=== PATIENT | female | born 1945 | race Caucasian/White ===

== ENCOUNTER 2020-06-07 06:27 | Day surgery (SDC) | payer MEDICARE, BC ==
[2020-06-07] MEDS ORDERED: Dextrose 5%-Lactated Ringers 1,000 ML IV SCH (07:00)
[2020-06-07] MEDS ORDERED: fentaNYL 100 MCG/2 ML SDV ONE (07:10)
[2020-06-07] MEDS ORDERED: Propofol 200 MG/20 ML SDV ONE ×2 (07:10→09:45)
[2020-06-07] MEDS ORDERED: Midazolam 1 MG/ML 2 ML SDV ONE (07:10)
[2020-06-07] MEDS ORDERED: Pantoprazole 40 MG Vial IVPUSH ONE (09:43)
[2020-06-07 10:52] VITALS: PULSE 96
[2020-06-07 11:09] VITALS: BP 145/68
--- NOTE | 2020-06-19 11:07 | OR ---
DATE OF PROCEDURE: 06/07/2020 SURGEON: Amol Martinez MD PREOPERATIVE DIAGNOSIS: History of black stools. POSTOPERATIVE DIAGNOSES: 1. History of black stools. 2. Upper endoscopy showing: a. Large esophageal varices and lesser gastric cardiac varices. b. Erosive partial gastritis (probable likely source of recent upper gastrointestinal bleeding). 3. Colonoscopy with 2 polyps involving ascending colon and splenic flexure of colon. OPERATIVE PROCEDURE: 1. Esophagogastroduodenoscopy with antral biopsies for CLOtest. 2. Flexible colonoscopy with polypectomy x2. ANESTHESIA: IV sedation. INDICATIONS FOR PROCEDURE: This is a 74-year-old female presenting with some recent black stools. Plan is to proceed with upper and lower endoscopy with biopsies or polypectomy as indicated. Potential risks including bleeding and perforation were discussed, and the patient wishes to proceed. DETAILS OF PROCEDURE: The patient was taken to the operating room and placed in a left lateral decubitus position. IV sedation was administered after which the upper GI endoscope was passed orally through the length of esophagus, into the stomach with retroflexion view of the fundus, and thereafter through the pyloric channel to the junction of the third and fourth portions of the duodenum. The striking finding on the esophagus was fairly large esophageal varices in the distal esophagus. These were associated with some lesser sized varices in the gastric cardia. There was no major inflammation over the surface of these varices, and these would likely have not been associated with recent bleeding but the esophagus would be at high risk for major bleeding in the upcoming months and years. of the stomach, there was some erosive gastritis. There was some coffee-ground type of material present within the antrum where the erosions were occurring. No active bleeding was seen, but this certainly would be a likely source of the patient's black stools. The pyloric channel and visualized portions of the duodenum were unremarkable. At this point, biopsies were obtained from the antrum and sent for CLOtest for H pylori. Minimal bleeding from the biopsy site was seen, and the procedure was then concluded. Attention was then taken to the colonoscopy. Initial digital rectal exam was performed and was unremarkable. Colonoscope was passed into the rectum with retroflexion revealing some distended hemorrhoids. There were associated with this also some quite dilated rectal veins extending up from hemorrhoidal columns. This was consistent with portal hypertension as well. Scope was eventually passed into the cecum. The patient was noted to have 2 small polyps, 1 in the ascending colon and 1 in the splenic flexure. Both of these were excised by means of cautery snare technique. Good hemostasis was noted at the polypectomy sites, and the specimens were sent for histologic evaluation. The prep overall was quite good. Only small liquid stool was present. No blood or bleeding was seen within the colon. The scope was then withdrawn and the above findings reconfirmed, and the procedure was then concluded. Plan would be to begin the patient on some Protonix 40 mg a day, and the patient will be set up to see GWYN Mario, in 10 to 14 days regarding the overall situation. Consideration for Gastroenterology referral regarding the esophageal varices would be warranted. Otherwise, the next colonoscopy should be undertaken in 3 years. Amol Martinez MD /[id number]
== END 2020-06-07 11:30 | disposition home or self-care (01) ==
LOC: JP.SDS 06:27
PROVIDERS: ATTEND Surgery
DX: D12.2 Benign neoplasm of ascending colon (principal); D12.3 Benign neoplasm of transverse colon; K29.70 Gastritis, unspecified, without bleeding; K25.9 Gastric ulcer, unspecified as acute or chronic, without hemorrhage or perforation; I85.00 Esophageal varices without bleeding; K64.9 Unspecified hemorrhoids; I10 Essential (primary) hypertension; E11.9 Type 2 diabetes mellitus without complications; Z88.5 Allergy status to narcotic agent; Z01.812 Encounter for preprocedural laboratory examination; Z20.822 Contact with and (suspected) exposure to COVID-19
CPT/HCPCS: 43239; 45385; 87081; 88305; C9113; J2250; J2704; J3010; J7121; U0002

== ENCOUNTER 2021-06-29 08:32 | Day surgery (SDC) | payer MEDICARE, BC ==
[2021-06-29] MEDS ORDERED: Dextrose 5%-Lactated Ringers 1,000 ML IV SCH (09:45)
[2021-06-29] MEDS ORDERED: fentaNYL 100 MCG/2 ML SDV ONE (10:08)
[2021-06-29] MEDS ORDERED: Propofol 200 MG/20 ML SDV ONE (10:08)
[2021-06-29] MEDS ORDERED: Midazolam 1 MG/ML 2 ML SDV ONE (10:08)
[2021-06-29] MEDS ORDERED: ceFAZolin 1 GM in Premix Bag 1 BAG IV ONE (10:30)
[2021-06-29] MEDS: Lidocaine 1% with EPINEPHrine 1:100,000 50 ML MDV ONE ×2 (11:30→11:37)
[2021-06-29] MEDS: Bupivacaine 0.5% 50 ML MDV ONE ×2 (11:30→11:38)
[2021-06-29] MEDS ORDERED: Ketorolac 30 MG/ML SDV IM ONE (12:30)
[2021-06-29 13:07] VITALS: BP 155/78; PULSE 71
== END 2021-06-29 13:08 | disposition home or self-care (01) ==
LOC: JP.SDS 08:32
PROVIDERS: ATTEND Surgery
DX: D03.61 Melanoma in situ of right upper limb, including shoulder (principal); I10 Essential (primary) hypertension; K21.9 Gastro-esophageal reflux disease without esophagitis; E11.9 Type 2 diabetes mellitus without complications
CPT/HCPCS: 11606; 12034; J0690; J1885; J2250; J2704; J3010; J3490; J7121; 88305; 88342

== ENCOUNTER 2021-10-16 10:22 | Day surgery (SDC) | payer MEDICARE, BC ==
[~2021-10-16 10:22] MED LIST: Midazolam 1 MG/ML 2 ML SDV ONE; Propofol 200 MG/20 ML SDV ONE; fentaNYL 100 MCG/2 ML SDV ONE
[2021-10-16] MEDS ORDERED: Propranolol 40 MG Tab PO ONE (10:52)
[2021-10-16] MEDS ORDERED: ceFAZolin 2 GM in Sodium Chloride 0.9% 100 ML IV ONE (11:00)
[2021-10-16] MEDS ORDERED: Dextrose 5%-Lactated Ringers 1,000 ML IV SCH (11:00)
[2021-10-16] MEDS ORDERED: Lidocaine 1% with EPINEPHrine 1:100,000 50 ML MDV ONE (14:03)
[2021-10-16] MEDS ORDERED: Bupivacaine 0.5% 50 ML MDV ONE (14:03)
[2021-10-16] MEDS ORDERED: Bacitracin Oint 1 GM U/D Packet TOP ONE (14:20)
[2021-10-16] MEDS ORDERED: Bacitracin Oint 1 GM U/D Packet ONE (14:27)
[2021-10-16 15:21] VITALS: BP 162/80; PULSE 79
== END 2021-10-16 15:46 | disposition home or self-care (01) ==
LOC: JP.SDS 10:22
PROVIDERS: ATTEND Surgery
DX: L82.0 Inflamed seborrheic keratosis (principal); I12.9 Hypertensive chronic kidney disease with stage 1 through stage 4 chronic kidney disease, or unspecified chronic kidney disease; E11.22 Type 2 diabetes mellitus with diabetic chronic kidney disease; E66.9 Obesity, unspecified; N18.30 Chronic kidney disease, stage 3 unspecified; Z68.30 Body mass index [BMI] 30.0-30.9, adult
CPT/HCPCS: A9270-GY; J0690; J2250; J2704; J3010; J3490; J7121

== ENCOUNTER 2024-07-02 07:18 | Day surgery (SDC) | payer MEDICARE, BC ==
[2024-07-02] MEDS ORDERED: Propofol 200 MG/20 ML SDV ONE (07:39)
[2024-07-02] MEDS ORDERED: Succinylcholine 200 MG/10 ML MDV ONE (07:39)
[2024-07-02] MEDS ORDERED: Rocuronium 50 MG/5 ML Vial ONE (07:39)
[2024-07-02] MEDS ORDERED: Dexamethasone 4 MG/ML SDV ONE (07:39)
[2024-07-02] MEDS ORDERED: Glycopyrrolate 0.2 MG/ML 5 ML MDV ONE (07:39)
[2024-07-02] MEDS ORDERED: Ondansetron 4 MG/2 ML SDV ONE (07:39)
[2024-07-02] MEDS ORDERED: Neostigmine Methylsulfate 10 MG/10 ML MDV ONE (07:39)
[2024-07-02] MEDS ORDERED: fentaNYL 250 MCG/5 ML SDV ONE ×2 (07:41→11:14)
[2024-07-02 07:58] LABS: HEMATOCRIT 39.7 % (34.3-46.0); HEMOGLOBIN 13.3 g/dL (11.2-15.5); MEAN CORPUSCULAR HEMOGLOBIN 28.9 pg (31.6-35.5); MEAN CORPUSCULAR HGB CONC 33.5 g/dL (31.6-35.5); MEAN CORPUSCULAR VOLUME 86.3 fL (81.4-99.0); RED BLOOD CELL COUNT 4.6 M/uL (3.77-5.24)
[2024-07-02] MEDS: Lactated Ringers 1,000 ML IV SCH (08:00)
[2024-07-02 08:20] LABS: A/G RATIO 0.9 (1.2-2.2); ALANINE AMINOTRANSFERASE,ALT 35 U/L (12-78); ALBUMIN 3.7 g/dL (3.4-5.0); ALKALINE PHOSPHATASE 154 U/L (46-116); ASPARTATE AMNIOTRANSFERASE,AST 31 U/L (15-37); BILIRUBIN TOTAL 0.6 mg/dL (0.2-1.0); BLOOD UREA NITROGEN,BUN 22 mg/dL (7-18); CALCIUM 9.3 mg/dL (8.5-10.1); CARBON DIOXIDE,CO2 24 mmol/L (21-32); CHLORIDE,CL 104 mmol/L (100-108); CREATININE 1.1 mg/dL (0.6-1.0); EST CRCL DRUG DOSING (CG) 37.93 mL/min; ESTIMATED GFR 51 mL/min (>60); GLUCOSE RANDOM 247 mg/dL (74-106); POTASSIUM,K 4.5 mmol/L (3.6-5.2); PROTEIN TOTAL,TP 7.8 g/dL (6.4-8.2); SODIUM,NA 140 mmol/L (140-148)
[2024-07-02] MEDS: ceFAZolin 2 GM in Premix Bag 1 BAG IV ONE (11:21)
[2024-07-02] MEDS: Isosulfan Blue 5 ML SDV ONE (12:00)
[2024-07-02] MEDS ORDERED: Lactated Ringers 1,000 ML ONE (12:35)
[2024-07-02] MEDS: Bupivacaine 0.5% 50 ML MDV ONE (13:20)
[2024-07-02] MEDS: Lidocaine 1% with EPINEPHrine 1:100,000 50 ML MDV ONE (13:20)
[2024-07-02] MEDS ORDERED: Naloxone 0.4 MG/ML SDV ONE (13:38)
[2024-07-02 16:41] VITALS: BP 156/74; PULSE 77
== END 2024-07-02 16:30 | disposition home or self-care (01) ==
LOC: JP.SDS 07:18
PROVIDERS: ATTEND Surgery
DX: C50.911 Malignant neoplasm of unspecified site of right female breast (principal); C50.912 Malignant neoplasm of unspecified site of left female breast; I10 Essential (primary) hypertension; E11.9 Type 2 diabetes mellitus without complications; E78.00 Pure hypercholesterolemia, unspecified; Z87.891 Personal history of nicotine dependence; Z79.85 Long-term (current) use of injectable non-insulin antidiabetic drugs; Z79.4 Long term (current) use of insulin; Z79.84 Long term (current) use of oral hypoglycemic drugs; Z79.899 Other long term (current) drug therapy; Z88.5 Allergy status to narcotic agent
CPT/HCPCS: 00400; 19120; 36415; 38525; 38900; 76098; 78195; 80053; 85027; 86850; 86900; 86901; A9541; J0330; J0665; J0690; J1100; J1596; J2310; J2405; J2704; J2710; J3010; J7120; Q9968; J3490

== ENCOUNTER 2024-10-06 14:54 | Emergency (ER) | payer MEDICARE, BC ==
[2024-10-06] MEDS: Ketorolac 30 MG/ML SDV IM ONE (16:31)
[2024-10-06 16:47] VITALS: BP 153/62; PULSE 79
== END 2024-10-06 17:07 | disposition home or self-care (01) ==
LOC: JP.ED 14:54
DX: K03.81 Cracked tooth (principal); I10 Essential (primary) hypertension; E11.9 Type 2 diabetes mellitus without complications; E66.9 Obesity, unspecified; E78.00 Pure hypercholesterolemia, unspecified; Z88.5 Allergy status to narcotic agent; Z88.8 Allergy status to other drugs, medicaments and biological substances; Z79.899 Other long term (current) drug therapy; Z79.4 Long term (current) use of insulin; Z90.49 Acquired absence of other specified parts of digestive tract; Z87.891 Personal history of nicotine dependence; Z68.26 Body mass index [BMI] 26.0-26.9, adult
CPT/HCPCS: 96372; 99283; J1885

== ENCOUNTER 2025-02-14 06:48 | Emergency (ER) | payer MEDICARE, BC ==
[2025-02-14 07:49] LABS: BASOPHILS ABSOLUTE AUTO 0.06 K/uL (0.00-0.10); BASOPHILS PERCENT AUTO 0.6 % (0.1-1.3); EOSINOPHILS ABSOLUTE AUTO 0.07 K/uL (0.00-0.40); EOSINOPHILS PERCENT AUTO 0.7 % (0.0-5.4); IMMATURE GRAN ABSOLUTE AUTO 0.04 K/uL (0.00-0.23); IMMATURE GRAN PERCENT AUTO 0.4 % (0.0-0.7); LYMPHOCYTES ABSOLUTE AUTO 0.62 K/uL (0.8-3.3); LYMPHOCYTES PERCENT AUTO 6.4 % (11.4-47.7); MONOCYTES ABSOLUTE AUTO 0.66 K/uL (0.20-0.90); MONOCYTES PERCENT AUTO 6.8 % (3.3-12.6); NEUTROPHILS ABSOLUTE AUTO 8.27 K/uL (1.0-7.6); NEUTROPHILS PERCENT AUTO 85.1 % (40.0-78.1); PLATELET COUNT,PLT 115 K/uL (130-375); RED BLOOD CELL COUNT 3.67 M/uL (3.77-5.24); WHITE BLOOD CELL COUNT,WBC 9.7 K/uL (3.2-11.0)
[2025-02-14] MEDS: Ondansetron 4 MG/2 ML SDV IVPUSH ONE (07:59)
[2025-02-14 08:08] LABS: INR 1.1
[2025-02-14 08:13] LABS: A/G RATIO 0.8 (1.2-2.2); ALANINE AMINOTRANSFERASE,ALT 31 U/L (12-78); ASPARTATE AMNIOTRANSFERASE,AST 30 U/L (15-37); BILIRUBIN TOTAL 0.6 mg/dL (0.2-1.0); BLOOD UREA NITROGEN,BUN 33 mg/dL (7-18); CARBON DIOXIDE,CO2 23 mmol/L (21-32); CHLORIDE,CL 108 mmol/L (100-108); CREATININE 1.5 mg/dL (0.6-1.0); EST CRCL DRUG DOSING (CG) 27.36 mL/min; ESTIMATED GFR 35 mL/min (>60); GLUCOSE RANDOM 392 mg/dL (74-106); POTASSIUM,K 4.9 mmol/L (3.6-5.2); PROTEIN TOTAL,TP 6.7 g/dL (6.4-8.2); SODIUM,NA 141 mmol/L (140-148)
[2025-02-14 08:17] LABS: CREATINE KINASE,CK 28.0 U/L (26-192); TROPONIN I HIGH SENSITIVITY 14.4 pg/mL (<=60.3)
[2025-02-14 08:29] LABS: APPEARANCE,URINE CLEAR (CLEAR); GLUCOSE,URINE 500 mg/dL (NEGATIVE); OCCULT BLOOD,URINE TRACE-LYSED (NEGATIVE); UROTHELIAL CELLS,URINE NOT SEEN /HPF
[2025-02-14 08:30] LABS: SQUAMOUS EPITHELIAL CELLS,UR RARE /HPF
[2025-02-14] MEDS: Iopamidol 612 MG/ML 100 ML Bottle IV SCH (09:59)
[2025-02-14] MEDS: Sodium Chloride 0.9% 10 ML Syringe FLUSH ONE (09:59)
[2025-02-14 13:08] VITALS: BP 183/97; PULSE 92
== END 2025-02-14 13:50 ==
LOC: JP.ED 06:48
DX: S09.8XXA Other specified injuries of head, initial encounter (principal); K92.0 Hematemesis; I85.01 Esophageal varices with bleeding; I95.1 Orthostatic hypotension; I10 Essential (primary) hypertension; E78.00 Pure hypercholesterolemia, unspecified; E11.9 Type 2 diabetes mellitus without complications; E66.9 Obesity, unspecified; Z88.5 Allergy status to narcotic agent; Z88.8 Allergy status to other drugs, medicaments and biological substances; Z79.4 Long term (current) use of insulin; Z79.899 Other long term (current) drug therapy; Z90.49 Acquired absence of other specified parts of digestive tract; W06.XXXA Fall from bed, initial encounter
CPT/HCPCS: 36415; 70450; 74177; 80053; 81001; 82550; 83605; 83735; 84484; 85025; 85610; 86850; 86900; 86901; 87086; 87088; 93005; 96361; 96374; 96375; 99285; J2405; J2470; J7030; Q9967